=== PATIENT | male | born 1945 | race Two or more races ===

== ENCOUNTER 2022-05-07 15:42 | Inpatient (IN) | payer MEDICARE ==
[~2022-05-07] VITALS: Ht 188 cm; Wt 106.6 kg
[2022-05-07] MEDS ORDERED: CEFTRIAXONE 1 G in IV DEXTROSE 5% 50 ML IV ONE (16:45)
[2022-05-07] MEDS ORDERED: IV NORMAL SALINE 500 ML BAG IV ONE ×2 (16:45→19:00)
[2022-05-07 16:59] LABS: MEAN CORPUSCULAR HEMOGLOBIN 32.1 uug (23.8-33.4); MEAN CORPUSCULAR VOLUME 94.7 fL (73.0-96.2); PLATELET COUNT (AUTO) 354 K/uL (152-348)
[2022-05-07 17:02] LABS: *BILIRUBIN,URIN NEGATIVE (NEGATIVE); *BLOOD, URINE 1+ (NEGATIVE); *CLARITY,URINE SLIGHTLY CLOUDY (CLEAR); *COLOR,URINE DARK YELLOW (YELLOW); *KETONES,URINE TRACE (NEGATIVE); LEUKOCYTE ESTERASE ,URINE 3+ (NEGATIVE); NITRITE, URINE POSITIVE (NEGATIVE); UGLUCOSE TRACE (NEGATIVE)
[2022-05-07 17:18] LABS: SQUAMOUS EPITHELIAL CELL,UR MODERATE /HPF (NONE SEEN)
[2022-05-07 17:19] LABS: BACTERIA,URINE MODERATE /HPF (NONE SEEN)
[2022-05-07 17:20] LABS: ALANINE AMINOTRANSFERASE 21 U/L (16-63); ALKALINE PHOSPHATASE 77 U/L (50-136); ASPARTATE AMINOTRANSFERASE 17 U/L (15-37); BILIRUBIN,TOTAL 0.6 mg/dL (0.2-1.0); CARBON DIOXIDE 31 mmol/L (21-32); CHLORIDE 96 mmol/L (98-107); GLUCOSE 140 mg/dL (74-106); POTASSIUM 4.2 mmol/L (3.5-5.1); TOTAL PROTEIN, SERUM 7.9 g/dL (6.4-8.2); UREA NITROGEN, BLOOD 48 mg/dL (7-18)
[2022-05-07] MEDS ORDERED: CEFTRIAXONE /D5W 50ML IVPB **ER PYXIS IV ONE (17:21)
[2022-05-07] MEDS ORDERED: ONDANSETRON 4 MG/2 ML VIAL ONE (18:54)
[2022-05-07] MEDS ORDERED: ONDANSETRON 4 MG/2 ML VIAL IV ONE (19:00)
--- NOTE | 2022-05-07 22:13 | NUR ---
Endorsed to Elias. Transferred to RM [id number]
--- NOTE | 2022-05-07 22:15 | NUR ---
PATIENT ADMITTED FROM ER VIA GURNEY WITH DIAGNOSE OF UTI. PATIENT IS AMBULATORY. ALERT ORIENTED X4 AND ABLE TO MAKE NEEDS KNOWN. PATIENT TRANSFERRED TO BED AND MADE COMFORTABLE. NOTED WITH IV ON LEFT AC #20. NS BOLUS IS STILL INFUSING. ALL NEEDS MET AND ATTENDED. CALL LIGHT IN REACH AND FUNCTIONAL.
[2022-05-07 22:23] VITALS: BP 150/92
[2022-05-08] MEDS ORDERED: ACETAMINOPHEN 325 MG TABLET PO PRN (00:45)
[2022-05-08] MEDS ORDERED: HYDROCODONE/APAP 5-325MG TABLET PO PRN (00:45)
[2022-05-08] MEDS ORDERED: REMEDY ESSENTIAL ZINC PASTE 113 GM TP PRN (00:45)
[2022-05-08] MEDS ORDERED: ONDANSETRON 4 MG/2 ML VIAL IV PRN (00:45)
[2022-05-08] MEDS: IV NS 1000 ML 1,000 ML IV PRN ×2 (01:49→15:51)
[2022-05-08 05:13] VITALS: BP 134/69
[2022-05-08] MEDS: PANTOPRAZOLE SODIUM 40 MG TABLET.DR PO SCH (06:17)
[2022-05-08 07:27] LABS: HEMATOCRIT 41.3 % (36.7-47.1); MEAN CORPUSCULAR HEMOGLOBIN 31.6 uug (23.8-33.4); MEAN CORPUSCULAR VOLUME 94.5 fL (73.0-96.2); PLATELET COUNT (AUTO) 303 K/uL (152-348)
[2022-05-08 07:54] LABS: ALANINE AMINOTRANSFERASE 14 U/L (16-63); ALKALINE PHOSPHATASE 76 U/L (50-136); ASPARTATE AMINOTRANSFERASE 27 U/L (15-37); BILIRUBIN,TOTAL 0.6 mg/dL (0.2-1.0); CARBON DIOXIDE 29 mmol/L (21-32); CHLORIDE 100 mmol/L (98-107); CREATININE 1.9 mg/dL (0.6-1.3); GLUCOSE 137 mg/dL (74-106); MAGNESIUM 2.4 mg/dL (1.8-2.4); PHOSPHOROUS 3.9 mg/dL (2.5-4.9); TOTAL PROTEIN, SERUM 7.7 g/dL (6.4-8.2); UREA NITROGEN, BLOOD 51 mg/dL (7-18)
[2022-05-08] MEDS: HEPARIN SODIUM,PORCINE 5,000 UNITS/ML VIAL SQ SCH ×2 (08:49→21:11)
[2022-05-08 11:13] VITALS: BP 150/92
[2022-05-08] MEDS ORDERED: LOSA100T31 PO (12:17)
[2022-05-08] MEDS: LOSARTAN POTASSIUM 50 MG TABLET PO SCH (13:47)
--- NOTE | 2022-05-08 16:06 | NUR ---
Pt. noted to be stable during the shift. No c/o pain. Able to make the need known. Compliance with the care given. Urine collected and sent to the lab. No acute distress noted. call light within reach. will keep monitoring the patient.
[2022-05-08 16:20] VITALS: BP 145/78
[2022-05-08] MEDS ORDERED: CEFTRIAXONE 1 G in IV DEXTROSE 5% 50 ML IV SCH (18:00)
[2022-05-08] MEDS: CEFTRIAXONE 2 G in IV DEXTROSE 5% 100 ML IV SCH (18:17)
[2022-05-08 20:00] VITALS: BP 148/86
[2022-05-09] MEDS: IV NS 1000 ML 1,000 ML IV PRN (05:21)
[2022-05-09] MEDS: PANTOPRAZOLE SODIUM 40 MG TABLET.DR PO SCH (06:23)
[2022-05-09 08:00] VITALS: BP 127/59
[2022-05-09] MEDS: LOSARTAN POTASSIUM 50 MG TABLET PO SCH (09:34)
[2022-05-09] MEDS: HEPARIN SODIUM,PORCINE 5,000 UNITS/ML VIAL SQ SCH ×2 (09:34→20:49)
[2022-05-09 13:02] VITALS: BP 146/75
[2022-05-09] MEDS ORDERED: MAGNESIUM HYDROXIDE 30 ML LIQUID UDC PO PRN (15:30)
[2022-05-09] MEDS ORDERED: MORPHINE SULFATE 2 MG/1 ML DISP.SYRIN IV PRN (16:30)
[2022-05-09] MEDS: MAGNESIUM HYDROXIDE 30 ML LIQUID UDC PO PRN (16:36)
[2022-05-09] MEDS: CEFTRIAXONE 2 G in IV DEXTROSE 5% 100 ML IV SCH (18:18)
[2022-05-09 20:00] VITALS: BP 133/86
[2022-05-09] MEDS: TAMSULOSIN HCL 0.4 MG CAP.SR.24H PO SCH (20:48)
[2022-05-09] MEDS ORDERED: TAMSULOSIN HCL 0.4 MG CAP.SR.24H PO SCH (21:00)
[2022-05-10 04:00] VITALS: BP 107/75
[2022-05-10] MEDS: PANTOPRAZOLE SODIUM 40 MG TABLET.DR PO SCH (06:36)
[2022-05-10] MEDS: IV NS 1000 ML 1,000 ML IV PRN ×2 (06:37→22:58)
[2022-05-10] MEDS: LOSARTAN POTASSIUM 50 MG TABLET PO SCH (08:16)
[2022-05-10] MEDS: HEPARIN SODIUM,PORCINE 5,000 UNITS/ML VIAL SQ SCH ×2 (08:30→21:25)
[2022-05-10 08:54] LABS: HEMATOCRIT 34.8 % (36.7-47.1); MEAN CORPUSCULAR HEMOGLOBIN 31.9 uug (23.8-33.4); MEAN CORPUSCULAR VOLUME 96.1 fL (73.0-96.2); PLATELET COUNT (AUTO) 257 K/uL (152-348)
[2022-05-10 09:07] LABS: CARBON DIOXIDE 28 mmol/L (21-32); CHLORIDE 107 mmol/L (98-107); CREATININE 1.8 mg/dL (0.6-1.3); GLUCOSE 120 mg/dL (74-106); MAGNESIUM 2.5 mg/dL (1.8-2.4); PHOSPHOROUS 3.2 mg/dL (2.5-4.9); POTASSIUM 4.2 mmol/L (3.5-5.1); UREA NITROGEN, BLOOD 37 mg/dL (7-18)
[2022-05-10] MEDS: MAGNESIUM HYDROXIDE 30 ML LIQUID UDC PO PRN (10:44)
[2022-05-10 12:25] VITALS: BP 133/79
[2022-05-10] MEDS ORDERED: LACTULOSE 20 G/30 ML LIQUID UDC PO ONE (15:00)
[2022-05-10] MEDS ORDERED: SORBITOL 70% SOLUTION 30 ML UDC PO ONE (15:00)
[2022-05-10 16:44] VITALS: BP 162/80
[2022-05-10] MEDS ORDERED: BISACODYL 10 MG SUPP.RECT RC ONE (16:45)
[2022-05-10] MEDS: CEFTRIAXONE 2 G in IV DEXTROSE 5% 100 ML IV SCH (17:05)
--- NOTE | 2022-05-10 19:25 | NUR ---
Pt is A&Ox4 and is cooperative. Pt Had Scott D/C'ed and urinates frequently to the toilet. Pt on Rm Air. Safety measures in place. Will continue to monitor.
[2022-05-10 20:00] VITALS: BP 149/86
[2022-05-10] MEDS: TAMSULOSIN HCL 0.4 MG CAP.SR.24H PO SCH (21:20)
[2022-05-11 04:15] VITALS: BP 162/87
--- NOTE | 2022-05-11 04:46 | NUR ---
Pt's BP is 162/87. Contacted Dr. Quezada for recommendation as Pt has no PRN's. Dr. Quezada stated to "leave it." Pt currently has no pain. Pt is currently A&Ox4. Pt stated he "feels fine." Safety measures in place. Will continue to monitor.
[2022-05-11] MEDS: PANTOPRAZOLE SODIUM 40 MG TABLET.DR PO SCH (06:03)
--- NOTE | 2022-05-11 06:47 | NUR ---
End of Shift Note: Pt is A&Ox4 and is cooperative. Pt Had Scott D/C'ed and urinates frequently to the toilet. Pt has urinated to the toilet around 5 times. Pt's BP is still elevated. Pt on Rm Air. Safety measures in place. Will continue to monitor.
[2022-05-11 07:45] LABS: HEMATOCRIT 33.5 % (36.7-47.1); MEAN CORPUSCULAR HEMOGLOBIN 32.4 uug (23.8-33.4); MEAN CORPUSCULAR VOLUME 96.6 fL (73.0-96.2); PLATELET COUNT (AUTO) 241 K/uL (152-348)
[2022-05-11 08:04] LABS: CARBON DIOXIDE 26 mmol/L (21-32); CHLORIDE 105 mmol/L (98-107); CREATININE 3.1 mg/dL (0.6-1.3); GLUCOSE 132 mg/dL (74-106); MAGNESIUM 2.5 mg/dL (1.8-2.4); PHOSPHOROUS 3.7 mg/dL (2.5-4.9); UREA NITROGEN, BLOOD 38 mg/dL (7-18)
[2022-05-11] MEDS: HEPARIN SODIUM,PORCINE 5,000 UNITS/ML VIAL SQ SCH ×2 (08:06→20:13)
[2022-05-11] MEDS: LOSARTAN POTASSIUM 50 MG TABLET PO SCH (08:06)
--- NOTE | 2022-05-11 09:30 | NUR ---
bladder scan did per md orders, per bladder scan pt was retaining 1141 ml urine
--- NOTE | 2022-05-11 09:58 | NUR ---
per md orders folly catheter inserted
[2022-05-11 11:02] VITALS: BP 154/72
[2022-05-11 14:14] LABS: CARBON DIOXIDE 27 mmol/L (21-32); CHLORIDE 107 mmol/L (98-107); CREATININE 2.7 mg/dL (0.6-1.3); GLUCOSE 123 mg/dL (74-106); POTASSIUM 3.9 mmol/L (3.5-5.1); UREA NITROGEN, BLOOD 35 mg/dL (7-18)
[2022-05-11] MEDS: IV NS 1000 ML 1,000 ML IV PRN (15:11)
[2022-05-11 15:22] VITALS: BP 149/70
[2022-05-11] MEDS: CEFTRIAXONE 2 G in IV DEXTROSE 5% 100 ML IV SCH (17:06)
[2022-05-11 19:51] VITALS: BP 152/80
[2022-05-11] MEDS: TAMSULOSIN HCL 0.4 MG CAP.SR.24H PO SCH (20:12)
[2022-05-12 04:58] VITALS: BP 154/67
[2022-05-12] MEDS: IV NS 1000 ML 1,000 ML IV PRN (05:07)
[2022-05-12] MEDS: PANTOPRAZOLE SODIUM 40 MG TABLET.DR PO SCH (06:02)
[2022-05-12 07:40] LABS: HEMATOCRIT 30.1 % (36.7-47.1); MEAN CORPUSCULAR HEMOGLOBIN 32.3 uug (23.8-33.4); MEAN CORPUSCULAR VOLUME 95.8 fL (73.0-96.2); PLATELET COUNT (AUTO) 263 K/uL (152-348)
[2022-05-12 08:29] LABS: ALKALINE PHOSPHATASE 71 U/L (50-136); ASPARTATE AMINOTRANSFERASE 25 U/L (15-37); BILIRUBIN,TOTAL 0.3 mg/dL (0.2-1.0); CARBON DIOXIDE 28 mmol/L (21-32); CHLORIDE 109 mmol/L (98-107); CREATININE 1.4 mg/dL (0.6-1.3); GLUCOSE 89 mg/dL (74-106); MAGNESIUM 2.1 mg/dL (1.8-2.4); PHOSPHOROUS 2.7 mg/dL (2.5-4.9); POTASSIUM 3.8 mmol/L (3.5-5.1); TOTAL PROTEIN, SERUM 6.1 g/dL (6.4-8.2); UREA NITROGEN, BLOOD 21 mg/dL (7-18)
[2022-05-12 09:00] LABS: ALANINE AMINOTRANSFERASE 37 U/L (16-63)
[2022-05-12] MEDS: TAMSULOSIN HCL 0.4 MG CAP.SR.24H PO SCH (09:55)
[2022-05-12] MEDS: HEPARIN SODIUM,PORCINE 5,000 UNITS/ML VIAL SQ SCH (09:57)
[2022-05-12 11:12] VITALS: BP 155/67
[2022-05-12] MEDS ORDERED: TAMS-3 PO (12:03)
--- NOTE | 2022-05-12 13:32 | NUR ---
REMOVED ALEXANDER CATH. VOID TRIAL WILL BE DONE. IF PT CANT URINATE INSERT FC AGAIN W/ LEG BAG. THEN DC HOME PER .
[2022-05-12 16:55] VITALS: BP 144/69
--- NOTE | 2022-05-12 18:29 | NUR ---
pt was discharge. pt is hemodynamically stable. no acute distress noted. pt is ambulatory. shelton cath was inserted w/ a leg bag prior dc for urine retention per md. educate pt with catheter care and bag draining, pt verbalized understanding. pt will go home with spouse via private car. all belonging accounted for. iv access removed.
== END 2022-05-12 18:30 | disposition home or self-care (01) | DRG 871 ==
LOC: ER 15:42 → MED 21:07 → UNDODISIN 05-09 15:10 → MEDSURG3 05-10 06:11
PROVIDERS: ADMIT Nurse Practitioner Acute Care; ATTEND Nurse Practitioner Acute Care
DX: A41.9 Sepsis, unspecified organism (principal); N17.0 Acute kidney failure with tubular necrosis; N13.8 Other obstructive and reflux uropathy; N13.6 Pyonephrosis; D64.9 Anemia, unspecified; I10 Essential (primary) hypertension; N40.0 Benign prostatic hyperplasia without lower urinary tract symptoms; N32.0 Bladder-neck obstruction; N40.1 Benign prostatic hyperplasia with lower urinary tract symptoms; K44.9 Diaphragmatic hernia without obstruction or gangrene; E83.9 Disorder of mineral metabolism, unspecified; K59.00 Constipation, unspecified; D17.79 Benign lipomatous neoplasm of other sites; M89.8X9 Other specified disorders of bone, unspecified site; Z20.822 Contact with and (suspected) exposure to COVID-19
CPT/HCPCS: 36415; 71045; 76770; 83605; 83735; 84100; 84484; 85025; 87040; 93005; A4663; G0378; J0696; J1644; J2270; J2405; J7040